=== PATIENT | male | born 1930 | race Caucasian/White ===

== ENCOUNTER 2018-06-22 16:54 | Observation (INO) ==
[2018-06-22 17:43] LABS: Bilirubin,Urine Negative (Negative); Blood,Urine Negative (Negative); Clarity,Urine Clear (Clear); Color,Urine Yellow (Yellow); Glucose,Urine (UA) Normal (Normal); Ketones,Urine Negative (Negative); Leukocyte Esterase,Urine Negative (Negative); Nitrite,Urine Negative (Negative); PH,Urine 6.5 pH Units (5.0-8.0); Protein,Urine Trace mg/dL (Neg-Trace); Specific Gravity,Urine 1.011 (1.010-1.025); Urobilinogen,Urine Normal (Normal)
[2018-06-22 17:45] LABS: Bacteria,Urine None Seen per hpf (None-Few); Hyaline Casts,Urine None Seen per lpf (None-Few); RBC,Urine 0-3 per hpf (0-3); Squamous Epithelial Cell,Urine None Seen per lpf (None-Few); WBC,Urine 0-3 per hpf (0-3)
[2018-06-22 17:45] LABS: Basophils # 0.1 K/mcL (0.0-0.2); Basophils % 0.8 %; Eosinophils # 0.3 K/mcL (0.0-0.6); Eosinophils % 2.9 %; Hematocrit 37.9 % (37.5-50.1); Hemoglobin 12.4 g/dL (12.9-16.9); Immature Granulocytes % 0.2 % (0-4); Lymphocytes # 2.2 K/mcL (0.6-4.6); Lymphocytes % 23.7 %; Mean Corpuscular HGB Conc 32.7 g/dL (31.6-35.5); Mean Corpuscular Hemoglobin 28.2 pg (28.0-33.3); Mean Corpuscular Volume 86.3 fL (83.0-100.0); Mean Platelet Volume 10.8 fL (9.4-12.4); Monocytes # 0.7 K/mcL (0.0-1.3); Monocytes % 7.6 %; Platelet Count 287 K/mcL (140-400); Red Blood Count 4.39 M/mcL (4.19-5.50); Red Cell Distribution Width 13.6 % (11.5-14.5); Segmented Neutrophils % 64.8 %
[2018-06-22 18:06] LABS: BUN/Creatinine Ratio 14 (6-26); Blood Urea Nitrogen 22 mg/dL (8-23); Calcium 9.5 mg/dL (8.6-10.3); Carbon Dioxide 28 mEq/L (23-29); Chloride 102 mEq/L (98-107); Glucose 104 mg/dL (70-105); Osmolality,Calculated 290 (280-300); Sodium 138 mEq/L (136-145); Troponin I < 0.03 ng/mL (< 0.04); eGFR For Non-African Americans 40 (> 60)
[2018-06-22] MEDS ORDERED: *HR* Labetalol 20 MG/4 ML SYRINGE IVP ONE (18:27)
--- NOTE | 2018-06-22 18:59 | Emergency Department Note ---
Disposition Clinical Impression: Risk for falls, Dizziness Hypertension Qualifiers: Hypertension type: unspecified Qualified Code(s): I10 - Essential (primary) hypertension Disposition: Admitted As Inpatient Condition: Fair Referrals: Tanner Isaacs DO [Primary Care Provider] - Forms: ED Satisfaction Letter Time of Disposition: 19:43 General Adult HPI - General Chief complaint: ED Dizziness Stated complaint: "elevated bp, dizzy" Time Seen by Provider: 06/22/18 17:09 Source: patient Mode of arrival: ambulatory Limitations: no limitations Nursing Notes Reviewed: Yes Vital Signs Reviewed: Yes - History of Present Illness HPI Narrative: Patient is a 8-year-old male past medical history of hypertension presents to the emergency department for evaluation of dizziness, hypertension. The patient states that yesterday evening after he was ambulating to the restroom he felt dizzy and felt like he is going to fall over however he was able to sit down and present himself from falling. He states that as of recently has been feeling less stable on his feet. He is also concerned because his blood pressure was in the 200's systolic at home prior to arrival. The patient is also concerned because he has had left lower extremity swelling that has been going on for the past 3 months. Denies any recent travels or surgeries or history of blood clots. Pain Scale: 0 - Related Data Home Medications Medication Instructions Recorded Confirmed Carvedilol 12.5 mg PO BID 06/22/18 06/22/18 Omeprazole [PriLOSEC] 20 mg PO DAILY 06/22/18 06/22/18 Valsartan 320 mg PO DAILY 06/22/18 06/22/18 Verapamil 120 mg PO DAILY 06/22/18 06/22/18 Allergies Allergy/AdvReac Type Severity Reaction Status Date / Time amlodipine [From Norvasc] AdvReac Intermediate See Verified 06/22/18 17:39 Comments clonidine AdvReac Intermediate See Verified 06/22/18 17:39 Comments All systems ED: reviewed and negative except as stated. Review of Systems: As Per HPI Constitutional: Denies: fever, chills Cardiovascular: Denies: chest pain, palpitations, dyspnea on exertion Respiratory: Denies: cough, dyspnea, wheezes Gastrointestinal: Denies: abdominal pain, nausea, vomiting Genitourinary: Reports: frequency (increased). Denies: urgency, dysuria Musculoskeletal: Denies: back pain, neck pain Integumentary: Denies: rash Neurological: Denies: headache, weakness, numbness, paresthesias, confusion, abnormal gait, vertigo Past Medical History - Past Medical History Attestation: Yes The following information was validated with the patient. Medical history: Reports: CVA, GERD, hypertension Surgical history: Reports: cholecystectomy Psychiatric history: Reports: no psych history - Social History Smoking Status: Never smoker Smokeless Tobacco Status: No Alcohol use: Reports: none Drug use: Reports: none Physical Exam CONSTITUTIONAL: Well-appearing; well-nourished; A&O X 3, in no apparent distress HEAD: Normocephalic; atraumatic EYES: PERRL, no scleral icterus NOSE: The nose is normal in appearance without rhinorrhea NECK: No JVD or distended neck veins RESP: Normal chest excursion with respiration; breath sounds clear and equal bilaterally; no wheezes, rhonchi, or rales CARD: Regular rhythm, without murmurs, rub or gallop ABD: Non-distended; non-tender, soft, without rigidity, rebound or guarding,no pulsatile mass CHEST: No pain with palpation SKIN: Normal for age and race; warm and dry without diaphoresis ; no apparent lesions EXTREMITIES: Pulses are 2 plus and equal times 4 extremities. LLE edema and calf muscle pain NEUROLOGICAL: Patient is alert and oriented times three. Cranial nerves III- XII are intact. Sensory and motor functions are intact. Strength is 5/5 for flexion and extension in all 4 extremities. Patellar DTRS are equal and intact. Finger to nose testing is equal and normal bilaterally. - General Limitations: no limitations General appearance: alert, in no apparent distress Course Course Narrative: Patient underwent a full workup for his dizziness 4/hypertension. Patient also underwent evaluation of his left lower externally swelling. DVT ultrasound was negative. Patient's blood pressure improved while in the emergency arm and without intervention. Patient's lab work was unremarkable as head CT was negative. Patient's family and patient himself are concerned that he is a fall risk at home and they are worried that if he goes back home by himself with this dizziness that he will causing injury or disability to himself. Discussed that prefer he be admitted for further evaluation first fall risk. I discussed this with the hospitalist on-call, Dr. Soriano and he agrees to accept. Vital Signs Temperature 98.1 F 06/22/18 17:05 Pulse Rate 65 06/22/18 17:05 Respiratory Rate 20 06/22/18 17:05 Blood Pressure 188/76 06/22/18 17:05 O2 Sat by Pulse Oximetry 97 06/22/18 17:05 Temperature 98.1 F 06/22/18 17:24 Pulse Rate 74 06/22/18 19:00 Respiratory Rate 20 06/22/18 19:00 Blood Pressure 168/66 06/22/18 19:00 O2 Sat by Pulse Oximetry 100 06/22/18 19:00 Oxygen Delivery Oxygen Delivery Room Air Medical Decision Making - Medical Records Medical records reviewed: Yes I reviewed the patient's medical records. - Lab Data Lab results reviewed: Yes I reviewed the patient's lab results. Result diagrams: 06/22/18 17:30 06/22/18 17:30 Lab Results 06/22/18 06/22/18 06/22/18 Range/Units 17:16 17:30 17:30 WBC 9.3 (4.3-11.1) K/mcL RBC 4.39 (4.19-5.50) M/mcL Hgb 12.4 L (12.9-16.9) g/dL Hct 37.9 (37.5-50.1) % MCV 86.3 (83.0-100.0) fL MCH 28.2 (28.0-33.3) pg MCHC 32.7 (31.6-35.5) g/dL RDW 13.6 (11.5-14.5) % Plt Count 287 (140-400) K/mcL MPV 10.8 (9.4-12.4) fL Immature Gran % 0.2 (0-4) % Seg Neutrophils % 64.8 % Lymphocytes % 23.7 % Monocytes % 7.6 % Eosinophils % 2.9 % Basophils % 0.8 % Neutrophils # 6.0 (1.6-8.9) K/mcL Lymphocytes # 2.2 (0.6-4.6) K/mcL Monocytes # 0.7 (0.0-1.3) K/mcL Eosinophils # 0.3 (0.0-0.6) K/mcL Basophils # 0.1 (0.0-0.2) K/mcL Sodium 138 (136-145) mEq/L Potassium 4.0 (3.5-5.1) mEq/L Chloride 102 (98-107) mEq/L Carbon Dioxide 28 (23-29) mEq/L BUN 22 (8-23) mg/dL Creatinine 1.62 H (0.70-1.30) mg/dL Est GFR ( Amer) 49 L (> 60) Est GFR (Non-Af Amer) 40 L (> 60) BUN/Creatinine Ratio 14 (6-26) Glucose 104 (70-105) mg/dL Calculated Osmolality 290 (280-300) Calcium 9.5 (8.6-10.3) mg/dL Troponin I < 0.03 (< 0.04) ng/mL Urine Color Yellow (Yellow) Urine Clarity Clear (Clear) Urine pH 6.5 (5.0-8.0) pH Units Ur Specific [place] 1.011 (1.010-1.025) Urine Protein Trace (Neg-Trace) mg/dL Urine Glucose (UA) Normal (Normal) mg/dL Urine Ketones Negative (Negative) mg/dL Urine Blood Negative (Negative) Urine Nitrite Negative (Negative) Urine Bilirubin Negative (Negative) Urine Urobilinogen Normal (Normal) mg/dL Ur Leukocyte Esterase Negative (Negative) Urine Microscopic RBC 0-3 (0-3) per hpf Urine Microscopic WBC 0-3 (0-3) per hpf Ur Squamous Epith Cells None Seen (None-Few) per lpf Urine Bacteria None Seen (None-Few) per hpf Hyaline Casts None Seen (None-Few) per lpf Ur Culture Indicated? NO (NO) - Radiology Data Radiology results reviewed: Yes I reviewed the patient's radiology results. Chest X-Ray 06/22/18 17:30 IMPRESSION: 1. No acute pulmonary disease evident. 2. Cardiomegaly. 3. Calcific atherosclerosis aorta. 4. Wires and cardiac leads overlying the chest could obscure an underlying finding. D/ / Tarik Neil / Tarik Neil Interpreting Provider: Tarik Neil Head CT 06/22/18 17:30 IMPRESSION: No acute intracranial abnormality. Stable cerebral atrophy D/ / Hunter Powers MD / Hunter Powers MD Interpreting Provider: Hunter Powers MD - EKG Data EKG #1 EKG attestation: Yes I reviewed and interpreted this EKG. EKG results narrative: EKG done at 17:31 shows sinus rhythm at a rate of 75 bpm. Normal axis. Intervals within normal limits. No ST elevation, ST depression or new Q waves present. Patient does have old Q waves in room 83 however these are the same as seen on an old EKG done on 08/31/2015. Attestation Statement - Attestation Attestation: Patient was seen with resident physician. I reviewed the history, physical, assessment and plan, and agree with the findings. I also personally evaluated this patient and had [id number] time with this patient. 88-year-old male presents emergency Department chief complaint of hypertension and dizziness yesterday. Patient states that he has had hypertension for the majority of his life, says that he has been on and off various medications for that. He says he currently takes 3 different medications. He says his blood pressures been a little high and yesterday had an episode where he felt a little bit dizzy. As result he came in today for evaluation and treatment. He also notes some unilateral swelling of the left lower extremity. No specific injury. He also has not been on the long car trips or other travel situation. Review of systems as above remained reviewed negative. Physical exam vital signs hypertensive. ENT is unremarkable. Heart regular rhythm and rate. Lungs clear. [place] soft and nontender. Extremities unremarkable. Neurologically alert and oriented without focal deficits. Skin no rashes. Psych normal. ED course ultrasound of the lower extremity was negative for DVT. Head CT scan did not show any acute intercranial abnormalities. Cardiovascular workup was otherwise negative with an EKG that did not have acute ischemic changes, and troponin that was negative. Chest x-ray was also negative. We discussed findings of the workup with the patient and family. His blood pressure came down about 20 points systolic throughout his stay in the emergency part without treatment. I think at the end of the day he probably needs to have his meds adjusted yet again. In discussing with the family they felt that he was a fall risk due to his dizziness. They are concerned about taking him home without having that assessed in greater detail. Based on this we contacted the hospitalist service and arrange for admission for hypertension and dizziness with PT OT evaluation. Agree with resident physician assessment and plan.
--- NOTE | 2018-06-22 20:09 | Internal Med History&Physical ---
Date of Encounter: 06/22/18 Time of Encounter: 21:35 Internal Medicine - H&P: HPI Chief complaint: Fall risk Admitted From: Emergency Dept Plans for Post Hospital Care: Home History of present illness: Mr. Reeves is a 88 year old male Patient presented to the emergency room for evaluation of dizziness and hypertension. He states that the day previous he was walking to his bathroom when he felt dizzy but he was able to catch himself and sit down before he fell. He says recently he has been more unstable on his feet. There is also some concern that his blood pressure was too high though his primary care provider has been adjusting his blood pressure meds outpatient. Upon arrival to the emergency room he also mentioned left lower extremity swelling has been chronic for the last 3 months. He has no history of blood clots in the past. In the emergency room CBC and BMP were unremarkable, patient has CKD stage III and his creatinine and GFR were at baseline. Troponins were undetectable, UA was normal, chest x-ray showed no acute abnormalities, head CT showed no acute intracranial abnormalities EKG showed normal sinus rhythm with no ST changes. A Doppler was done on the left lower extremity showed no DVT. The emergency room resident discussed with the family of the patient and they were concerned that if the patient returns home he would be at risk of falls. He lives alone, and the closest neighbor is 7 minutes away, and he would have no way of informing somebody if he did fall. I asked the ER resident to ask the patient' s family if they could take the patient home under their care, but family was more comfortable with admission to the hospital. Upon my assessment patient states that he feels fine. He ate a turkey sandwich and is ready for bed. He denies dizziness, nausea, vomiting, diarrhea, constipation, chest pain and abdominal pain. He states that he does not actually live alone, but his grandson lives with him. He is not home all the time, but this is different information than what ER provided. He also states that his blood pressure and dizziness issues are chronic, and have been with him for 50 years. He has had left leg swelling for 2-3 months now, but denies pain or injury to the area. He denies smoking, alcohol and other drugs. With regards to his code status, he states that he does not wish to be resuscitated in the event of cardiac or respiratory arrest. He does not want chest compressions nor breathing tube even if temporary. He is DNR-CCA-[id number]. Past Med Surg Social Fam HX - Past Medical History Medical history: CVA, GERD, hypertension Additional medical history: ABD hernia Psychiatric history: no psych history - Past Surgical History Surgical History: cholecystectomy - Social History Smoking Status: Never smoker Smokeless Tobacco Status: No Alcohol use: none Drug use: none - Family History Mother Adopted: No Family Member Ethnicity: Non- Living Status: Hx Family Cardiac Disorders: Yes (HTN) Hx Family Respiratory Disorders: No Hx Family Cancer: No Hx Family GI Disorders: No Hx Family Endocrine Disorder: No Hx Family Neuromuscular Disorders: No Hx Family Neurologic Disorders: Yes (Mother had a stroke.) Hx Family HEENT Disorders: No Hx Family Autoimmune Disorders: No Internal Medicine - H&P: Meds Carvedilol 12.5 mg PO BID 06/22/18 [History] Omeprazole [PriLOSEC] 20 mg PO DAILY 06/22/18 [History] Valsartan 320 mg PO DAILY 06/22/18 [History] Verapamil 120 mg PO DAILY 06/22/18 [History] 3 Allergy/AdvReac Type Severity Reaction Status Date / Time amlodipine [From Norvasc] AdvReac Intermediate See Verified 06/22/18 17:39 Comments clonidine AdvReac Intermediate See Verified 06/22/18 17:39 Comments All Systems PM: A 10-system review of systems was performed and is negative for pertinent findings except as documented above in the HPI. - Constitutional Vitals: Temp Pulse Resp BP Pulse Ox 98.1 F 74 20 168/66 100 06/22/18 17:24 06/22/18 19:00 06/22/18 19:00 06/22/18 19:00 06/22/18 19:00 General appearance: Present: cooperative, A&O X 3, pleasant, no acute distress, answers questions appropriately Exam: As above - Head Head exam: Present: normal inspection - Eye Eye exam: Present: EOMI, normal appearance - Respiratory Respiratory exam: Present: CTAB. Absent: chest wall tenderness, decreased breath sounds, respiratory distress, wheezes - Cardiovascular Cardiovascular exam: Present: RRR. Absent: diastolic murmur, systolic murmur - GI/Abdominal GI/Abdominal exam: Present: normal bowel sounds, soft. Absent: tenderness - Extremities Exam Extremities exam: Present: pedal edema, warm, radial pulses palpable and symmetrical. Absent: calf tenderness, tenderness Additional comments: Left leg edema, without pitting. Right leg within normal limits. - Neurological Exam Neurological exam: Present: no focal deficits, strengths equal and symetr throughout. Absent: motor sensory deficit, facial droop, speech deficit - Skin Skin exam: Present: dry, erythema, normal color, warm Additional comments: Left leg erythema, no tenderness. Internal Med - H&P Results - Labs CBC & Chem 7: 06/22/18 17:30 06/22/18 17:30 Labs: Short CBC 06/22/18 Range/Units 17:30 WBC 9.3 (4.3-11.1) K/mcL Hgb 12.4 L (12.9-16.9) g/dL Hct 37.9 (37.5-50.1) % Plt Count 287 (140-400) K/mcL Neutrophils # 6.0 (1.6-8.9) K/mcL BMP 06/22/18 17:30 Sodium 138 Potassium 4.0 Chloride 102 Carbon Dioxide 28 BUN 22 Creatinine 1.62 H Glucose 104 Calcium 9.5 Cardiac Enzymes 06/22/18 Range/Units 17:30 Troponin I < 0.03 (< 0.04) ng/mL Urine 06/22/18 Range/Units 17:16 Urine Color Yellow (Yellow) Urine Clarity Clear (Clear) Urine pH 6.5 (5.0-8.0) pH Units Ur Specific [place] 1.011 (1.010-1.025) Urine Protein Trace (Neg-Trace) mg/dL Urine Glucose (UA) Normal (Normal) mg/dL - Impressions ITS Impressions Chest X-Ray 06/22/18 17:30 IMPRESSION: 1. No acute pulmonary disease evident. 2. Cardiomegaly. 3. Calcific atherosclerosis aorta. 4. Wires and cardiac leads overlying the chest could obscure an underlying finding. D/ / Tarik Neil / Tarik Neil Interpreting Provider: Tarik Neil Head CT 06/22/18 17:30 IMPRESSION: No acute intracranial abnormality. Stable cerebral atrophy D/ / Hunter Powers MD / Hunter Powers MD Interpreting Provider: Hunter Powers MD - Assessment and plan (1) Risk for falls Current Visit: Yes Status: Acute Assessment and plan: Patient's family apparently worried that patient may fall if sent home. Patient informed me that he does live with his grandson, but he is not always around. Patient feels better now than when he first presented to the ER. Continue to monitor Fall precautions Treatment of dizziness and hypertension as below. (2) History of hypertension Current Visit: Yes Status: Acute Assessment and plan: Chronic, 50 year history of hypertension as per patient. Is currently on verapamil, valsartan and carvedilol. Currently blood pressure controlled. ER did not have to give dose of IV medications as his hypertension resolved on its own. Continue to monitor. Continue home meds. (3) Dizziness Current Visit: Yes Status: Acute Assessment and plan: Chronic, now improved from presentation to ER. Has been an issue for 50 years as per patient. He says it usually happens when his blood pressure gets too high. 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 PT/OT eval in AM. AM orthostatic vital signs. (4) CKD (chronic kidney disease) stage 3, GFR 30-59 ml/min Current Visit: No Status: Chronic Assessment and plan: At baseline Repeat labs in AM Regular diet (5) Leg edema, left Current Visit: Yes Status: Acute Assessment and plan: Left leg doppler negative for DVT. No tenderness with exam, does not appear infectious. Continue to monitor. (6) DVT prophylaxis Current Visit: No Status: Acute Assessment and plan: SCDs - Time Spent With Patient Total time spent is greater than 50% in coordination of care (as documented) at patient's floor/unit and/or counseling patient: Greater than 35 minutes
[2018-06-22] MEDS ORDERED: Naloxone 0.4 MG/ML INJ IVP PRN (21:56)
[2018-06-23 04:46] LABS: Hematocrit 31.3 % (37.5-50.1); Mean Corpuscular HGB Conc 33.2 g/dL (31.6-35.5); Mean Corpuscular Hemoglobin 28.9 pg (28.0-33.3); Mean Corpuscular Volume 86.9 fL (83.0-100.0); Mean Platelet Volume 11.3 fL (9.4-12.4); Platelet Count 203 K/mcL (140-400); Red Cell Distribution Width 13.5 % (11.5-14.5)
[2018-06-23 04:48] LABS: Hemoglobin 10.4 g/dL (12.9-16.9)
[2018-06-23 05:00] LABS: Calcium 8.7 mg/dL (8.6-10.3); Potassium 4.1 mEq/L (3.5-5.1)
[2018-06-23] MEDS ORDERED: Verapamil ER (24 HR) 120 MG TABLET.ER PO SCH (09:00)
[2018-06-23] MEDS ORDERED: Valsartan 160 MG TABLET PO SCH (09:00)
[2018-06-23 12:23] VITALS: BP 134/44
--- NOTE | 2018-06-23 14:25 | Discharge Summary ---
- NOTES TO OUTPATIENT PROVIDER Notes to Outpatient Provider: Patient with history of hypertension and CKD was admitted for dizziness and elevated blood pressure. It appears that patient's symptoms have been going on for 2-3 months already and is currently being worked up as an outpatient. His workup in the ED and as an inpatient were largely unremarkable including lower extremity Doppler, head CT, and CXR. Urinalysis and labwork also WNL. Orthostatics -ve. He was evaluated by PT/OT and deemed safe to be discharged to prior setting. Date of Encounter: 06/23/18 Time of Encounter: 14:10 - Discharge Diagnosis (1) Dizziness Priority: Primary Status: Acute (2) High blood pressure Priority: Secondary Status: Acute Qualifiers: Hypertension type: unspecified Qualified Code(s): I10 - Essential (primary ) hypertension (3) Risk for falls Priority: Secondary Status: Acute (4) DVT prophylaxis Priority: Secondary Status: Acute (5) CKD (chronic kidney disease) stage 3, GFR 30-59 ml/min Priority: Secondary Status: Chronic Hospital course: Mr. Reeves is a 88 year old male with history of hypertension and CKD was admitted for dizziness and elevated blood pressure. It appears that patient's symptoms have been going on for 2-3 months already and is currently being worked up as an outpatient. His workup in the ED and as an inpatient were largely unremarkable including lower extremity Doppler, head CT, and CXR. Urinalysis and labwork also WNL. Orthostatics -ve. He was evaluated by PT/OT and deemed safe to be discharged to prior setting. - Time Spent with Patient Total time spent providing and/or coordinating discharge services: - Discharge Medications Home Medications: Omeprazole [PriLOSEC] 20 mg PO DAILY 06/22/18 [History] Aspirin [Adult Aspirin] 81 mg PO DAILY 06/23/18 [History] Carvedilol 12.5 mg PO BID 06/23/18 [History] Valsartan 320 mg PO DAILY 06/23/18 [History] Verapamil HCl [Verapamil ER] 120 mg PO DAILY 06/23/18 [History] Allergies/Adverse Reactions: 3 Allergy/AdvReac Type Severity Reaction Status Date / Time amlodipine [From Norvas] AdvReac Intermediate See Verified 06/22/18 17:39 Comments clonidine AdvReac Intermediate See Verified 06/22/18 17:39 Comments Date of admission: 06/22/18 20:52 Primary care physician: Tanner Isaacs DO Consults: 06/22/18 22:00 OT [Consult to Occupational Therapy] [CONS] Routine Comment: Evaluate, develop and implement POC Reason for Consult: Dizziness at home, worry for falls Does patient have active BEDREST order?: No Is patient medically & hemodynamically stable?: Yes PT [Consult to Physical Therapy] [CONS] Routine Comment: Evaluate, develop and implement POC Reason for Consult: Dizziness at home, worry for falls Does patient have active BEDREST order?: No Is patient medically & hemodynamically stable?: Yes - Constitutional Vitals: Temp Pulse Resp BP Pulse Ox 98 F 61 16 134/44 97 06/23/18 11:36 06/23/18 12:22 06/23/18 11:36 06/23/18 12:22 06/23/18 11:36 General appearance: Present: cooperative, A&O X 3, pleasant, no acute distress, answers questions appropriately Exam: General: Alert and oriented, not in acute distress. Cardiovascular:Normal S1 & S2, No JVD. Pulse regular. Lungs: clear to auscultation, no wheezes/rales Abdomen:Soft, non-tender, no rigidity. Extremities:No deformity or swelling Neurological: CN II-XII intact, power and sensation fully intact in all 4 limbs. No cerebellar signs, pronator drift -ve, Babinski downgoing bilaterally - Patient Status Disposition: Home, Self-Care Condition: Fair Overall status at discharge: patient is progressing back to baseline - Discharge Instructions Instructions: Chronic Hypertension (DC) Follow Up With: Tanner Isaacs DO [Primary Care Provider] - - Diet and Activity Activity: resume usual activities as tolerated Diet: advance to your usual diet
--- NOTE | 2018-06-23 17:18 | Electrocardiograph Report ---
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
== END 2018-06-23 16:14 | disposition home or self-care (01) ==
LOC: EMEROOARM 16:54 → 3BNU 16:54 → SUATTDRO 20:52 → 3BNU 21:18
PROVIDERS: ADMIT Family Medicine; ATTEND Internal Medicine